=== PATIENT | female | born 1985 | race Hispanic/Latino ===

== ENCOUNTER 2018-03-09 01:17 | Emergency (ER) | payer OTHER ==
[2018-03-09 01:33] VITALS: BP 136/88; PULSE 88; RESP 16; TEMP 98.3; O2SAT 100
[2018-03-09] MEDS ORDERED: Tdap Vaccine 0.5 ml Vial (10-64 yrs) IM ONE ×2 (02:05→02:14)
--- NOTE | 2018-03-09 02:07 | ED PDOC ---
HPI: Wound Care - HPI Chief Complaint (Provider): right hand 2nd digit laceration History Per: Patient History Of Present Illness: 32 yo female presents for evaluation of laceration to right hand second digit sustained prior to arrival. 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 Denies numbness/weakness right upper extremity, limitation of movement. Last Tetanus unknown <Florecita Smith - Last Filed: 03/09/18 03:15> <Emir Clifford - Last Filed: 03/10/18 01:52> - HPI Time Seen by Provider: 03/09/18 01:28 Chief Complaint (Nursing): Abnormal Skin Integrity Past Medical History Reviewed: Historical Data, Nursing Documentation, Vital Signs Vital Signs: Last Vital Signs Temp 98.3 F 03/09/18 01:25 Pulse 88 03/09/18 01:25 Resp 16 03/09/18 01:25 BP 136/88 03/09/18 01:25 Pulse Ox 100 03/09/18 01:25 - Medical History PMH: No Chronic Diseases - Surgical History Surgical History: No Surg Hx - Family History Family History: States: No Known Family Hx <Florecita Smith - Last Filed: 03/09/18 03:15> Vital Signs: Last Vital Signs Temp 98.3 F 03/09/18 01:25 Pulse 88 03/09/18 01:25 Resp 16 03/09/18 01:25 BP 136/88 03/09/18 01:25 Pulse Ox 100 03/09/18 03:16 <Emir Clifford - Last Filed: 03/10/18 01:52> - Allergies Allergies/Adverse Reactions: Allergies Allergy/AdvReac Type Severity Reaction Status Date / Time No Known Allergies Allergy Verified 03/09/18 01:33 Review of Systems ROS Statement: Except As Marked, All Systems Reviewed And Found Negative Musculoskeletal: Positive for: Hand Pain (right hand second digit laceration) <Florecita Smith - Last Filed: 03/09/18 03:15> Physical Exam - Reviewed Nursing Documentation Reviewed: Yes Vital Signs Reviewed: Yes - Physical Exam Appears: Positive for: Well, Non-toxic, No Acute Distress Head Exam: Positive for: ATRAUMATIC, NORMAL INSPECTION, NORMOCEPHALIC Pulses-Radial (L): 2+ Pulses-Radial (R): 2+ Extremity: Positive for: Normal ROM, Other (1.5cm "C" shape skin-flap laceration dorsal right hand 2nd digit overlying PIP. Wound edges together, slightly open with flexion. No active bleeding, surrounding tenderness noted. Distal NV/motor intact) Neurologic/Psych: Positive for: Alert, Oriented. Negative for: Motor/Sensory Deficits <Florecita Smith - Last Filed: 03/09/18 03:15> - ECG O2 Sat by Pulse Oximetry: 100 <Florecita Smith - Last Filed: 03/09/18 03:15> Procedure: Wound Repair - Time Performed Time Performed: 02:20 - Time Out Time Out: Side verified, Site verified, Patient ID confirmed, Sterile procedures obs. - Consent Obtained Consent obtained: Verbal - Performed by Performed by: Mid-level Provider - Location Finger:: Right, Index Depth:: Epidermis - Debris Debris:: None - Irrigated Irrigated with ml of normal saline: 150mL - Wound repair method Toshia:: Tissue glue, Steri-strips - Muscle repiar layer closed with Muscle repair layer closed with:: Dressing applied (splint applied), Tetanus ordered <Florecita Smith - Last Filed: 03/09/18 03:15> Medical Decision Making Medical Decision Making: Patient educated on wound care, advised follow up PMD 2-3 days. Return precautions given <Florecita Smith - Last Filed: 03/09/18 03:15> Disposition - Patient ED Disposition Is Patient to be Admitted: No Counseled Patient/Family Regarding: Diagnosis, Need For Followup - Disposition Disposition: Routine/Home Disposition Time: 02:39 <Florecita Smith - Last Filed: 03/09/18 03:15> <Emir Clifford - Last Filed: 03/10/18 01:52> - Clinical Impression Clinical Impression: Finger laceration - Disposition Condition: GOOD Instructions: Laceration Repair With Glue (DC) Forms: [employer] (Belgian)
== END 2018-03-09 02:50 | disposition home or self-care (01) ==
LOC: H.ER 01:17
DX: S61.210A Laceration without foreign body of right index finger without damage to nail, initial encounter (principal); W26.8XXA Contact with other sharp object(s), not elsewhere classified, initial encounter; Y99.0 Civilian activity done for income or pay